=== PATIENT | female | born 1965 | race Caucasian/White ===

== ENCOUNTER 2017-07-19 07:27 | Day surgery (SDC) | payer BC ==
[2017-07-19] MEDS ORDERED: PROPOFOL 40 ML (09:07)
== END 2017-07-19 11:15 | disposition home or self-care (01) ==
LOC: GIL 07:27
DX: Z12.11 Encounter for screening for malignant neoplasm of colon (principal); K29.30 Chronic superficial gastritis without bleeding; K44.9 Diaphragmatic hernia without obstruction or gangrene; K64.4 Residual hemorrhoidal skin tags
CPT/HCPCS: 43239; 84703; 88305; 88312